=== PATIENT | male | born 1980 ===

== ENCOUNTER 2017-07-15 10:40 | Emergency (ER) | payer OTHER ==
[2017-07-15 10:59] VITALS: BP 116/71; PULSE 63; RESP 18; TEMP 98.4; O2SAT 98
[2017-07-15 11:22] LABS: BASO # 0.02 K/mm3 (0.0-2.0); BASO % 0.3 % (0.0-3.0); EOS # 0.1 (0.0-0.7); EOS % 1.5 % (1.5-5.0); GRAN # 2.98 (1.4-6.5); GRAN % 50.3 % (50.0-68.0); HEMOGLOBIN 14.3 g/dL (14.0-18.0); LYMPH # 2.2 (1.2-3.4); LYMPH % 36.4 % (22.0-35.0); MEAN CORPUSCULAR HEMOGLOBIN 26.8 pg (25.0-35.0); MEAN CORPUSCULAR HGB CONC 32.7 g/dl (31.0-37.0); MEAN PLATELET VOLUME 10.5 fl (7.0-11.0); MONO # 0.7 (0.1-0.6); MONO % 11.5 % (1.0-6.0); RBC 5.33 10^6/uL (3.5-6.1); RED CELL DISTRIBUTION WIDTH 13.5 % (11.5-14.5); WHITE BLOOD COUNT 5.9 10^3/ul (4.5-11.0)
[2017-07-15 11:30] LABS: ALB/GLOB RATIO 1.4 (1.1-1.8); ALBUMIN 4.3 g/dL (3.0-4.8); ALT/SGPT 39 U/L (7-56); AST/SGOT 28 U/L (17-59); BLOOD UREA NITROGEN 10 mg/dL (7-21); CALCIUM 9.3 mg/dL (8.4-10.5); GFR AFRICAN-AMERICAN > 60; GFR NON-AFRICAN AMERICAN > 60; MAGNESIUM 1.9 mg/dL (1.7-2.2)
[2017-07-15 11:41] LABS: TROPONIN I < 0.01 ng/mL
[2017-07-15 12:11] LABS: URINE BILIRUBIN NEGATIVE (NEGATIVE); URINE BLOOD NEGATIVE (NEGATIVE); URINE GLUCOSE (UA) NEGATIVE (NEGATIVE); URINE LEUKOCYTE ESTERASE NEGATIVE Leu/uL (NEGATIVE); URINE NITRATE NEGATIVE (NEGATIVE); URINE PROTEIN NEGATIVE mg/dL (<30 mg/dL); URINE UROBILINOGEN 0.2 E.U./dL (<1 E.U./dL)
[2017-07-15 12:13] LABS: URINE APPEARANCE CLEAR (CLEAR)
[2017-07-15 12:14] LABS: URINE COLOR YELLOW (YELLOW)
--- NOTE | 2017-07-15 12:29 | RAD ---
HISTORY: r/o infiltrate COMPARISON: No prior. TECHNIQUE: Chest PA and lateral FINDINGS: LUNGS: No active pulmonary disease. PLEURA: No significant pleural effusion identified. No pneumothorax apparent. CARDIOVASCULAR: Normal. OSSEOUS STRUCTURES: No significant abnormalities. VISUALIZED UPPER ABDOMEN: Normal. OTHER FINDINGS: None. IMPRESSION: No active disease.
--- NOTE | 2017-07-15 13:20 | ED PDOC ---
Arrival/HPI - General Chief Complaint: Cough, Cold, Congestion Time Seen by Provider: 07/15/17 10:48 Historian: Patient - History of Present Illness Narrative History of Present Illness (Text): 07/15/17 13:20 A 37 year old male presents to the emergency department complaining of left sided rib pain for the past couple days. Patient also reports non productive cough for 3-4 days. Reports he didn't get flu shot this year. Denies any sick contacts. Patient denies any fever, shortness of breath, nausea, vomiting or any other complaints at this time. Symptom Onset: Sudden Symptom Course: Unchanged Activities at Onset: Rest Context: Home Past Medical History - Provider Review Nursing Documentation Reviewed: Yes - Cardiac Hx Cardiac Disorders: No - Pulmonary Hx Respiratory Disorders: Yes Other/Comment: lung surgery - Genitourinary/Gynecological Hx Genitourinary Disorders: Yes Hx Urinary Tract Infection: Yes - Psychiatric Hx Substance Use: No - Surgical History Other/Comment: lung and urinary surgery - Anesthesia Hx Anesthesia: Yes Hx Anesthesia Reactions: No Hx Malignant Hyperthermia: No Family/Social History - Physician Review Nursing Documentation Reviewed: Yes Family/Social History: No Known Family HX Smoking Status: Never Smoked Hx Alcohol Use: No Hx Substance Use: No Allergies/Home Meds Allergies/Adverse Reactions: Allergies ampicillin Allergy (Verified 07/15/17 10:45) RASH Review of Systems - Review of Systems Constitutional: absent: Fevers Respiratory: Cough. absent: SOB Gastrointestinal: absent: Nausea, Vomiting Musculoskeletal: Other (left sided rib pain) Physical Exam Vital Signs Reviewed: Yes Vital Signs Temp Pulse Resp BP Pulse Ox 07/15/17 10:45 98.4 F 63 18 116/71 98 Temperature: Afebrile Blood Pressure: Normal Pulse: Regular Respiratory Rate: Normal Appearance: Positive for: Well-Appearing, Non-Toxic, Comfortable Pain Distress: None Mental Status: Positive for: Alert and Oriented X 3 - Systems Exam Head: Present: Atraumatic, Normocephalic Pupils: Present: PERRL Extroacular Muscles: Present: EOMI Conjunctiva: Present: Normal Mouth: Present: Moist Mucous Membranes Neck: Present: Normal Range of Motion Respiratory/Chest: Present: Clear to Auscultation, Good Air Exchange. No: Respiratory Distress, Accessory Muscle Use Cardiovascular: Present: Regular Rate and Rhythm, Normal S1, S2. No: Murmurs Abdomen: Present: Normal Bowel Sounds. No: Tenderness, Distention, Peritoneal Signs Back: Present: Normal Inspection Upper Extremity: Present: Normal Inspection, Other (healed scar left axilla, secondary to chest tube placed when 8 years old for PNA, according to patient). No: Cyanosis, Edema Lower Extremity: Present: Normal Inspection. No: Edema Neurological: Present: GCS=15, CN II-XII Intact, Speech Normal Skin: Present: Warm, Dry, Normal Color. No: Rashes Psychiatric: Present: Alert, Oriented x 3, Normal Insight, Normal Concentration Medical Decision Making ED Course and Treatment: 07/15/17 13:18 Impression: A 37 year old male with left sided rib pain and cough. Plan: -- EKG -- chest xray -- labs -- Reassess and disposition Progress Notes: EKG: Ordered, reviewed, and independently interpreted the EKG. Rate : 62 BPM Rhythm : NSR Interpretation : Normal intervals, normal axis 07/15/17 12:31 Chest xray: Creator : Quincy Carrasco MD IMPRESSION: No active disease. On re-evaluation, patient feels better and is in no acute distress. I have discussed the results and plan with the patient, who expresses understanding. Patient in agreement with plan to be discharged home. Patient is stable for discharge. Patient was instructed to follow up with physician or return if symptoms worsen or new concerning symptoms arise. - Lab Interpretations Lab Results: 07/15/17 11:05 07/15/17 11:05 Lab Results 07/15/17 12:04: Urine Color Yellow, Urine Appearance Clear, Urine pH 7.0, Ur Specific Roca 1.015, Urine Protein Negative, Urine Glucose (UA) Negative, Urine Ketones Negative, Urine Blood Negative, Urine Nitrate Negative, Urine Bilirubin Negative, Urine Urobilinogen 0.2, Ur Leukocyte Esterase Negative 07/15/17 11:05: Influenza Typ A,B (EIA) Negative for flu a/b 07/15/17 11:05: Sodium 139, Potassium 4.5, Chloride 104, Carbon Dioxide 26, Anion Gap 14, BUN 10, Creatinine 0.8, Est GFR ( Amer) > 60, Est GFR (Non- Af Amer) > 60, Random Glucose 97, Calcium 9.3, Magnesium 1.9, Total Bilirubin 0.5, AST 28, ALT 39, Alkaline Phosphatase 51, Lactate Dehydrogenase 331 L, Total Creatine Kinase 170, Troponin I < 0.01, Total Protein 7.2, Albumin 4.3, Globulin 3.0, Albumin/Globulin Ratio 1.4 07/15/17 11:05: WBC 5.9, RBC 5.33, Hgb 14.3, Hct 43.7, MCV 82.0, MCH 26.8, MCHC 32.7, RDW 13.5, Plt Count 192, MPV 10.5, Gran % 50.3, Lymph % (Auto) 36.4 H, Loup % (Auto) 11.5 H, Eos % (Auto) 1.5, Baso % (Auto) 0.3, Gran # 2.98, Lymph # 2.2, Loup # 0.7 H, Eos # 0.1, Baso # 0.02 I have reviewed the lab results: Yes - RAD Interpretation Radiology Orders: 07/15/17 10:56 CHEST TWO VIEWS (PA/LAT) [RAD] Stat - EKG Interpretation Interpreted by ED Physician: Yes Type: 12 lead EKG - Medication Orders Current Medication Orders: Discontinued Medications Ibuprofen (Motrin Tab) 600 mg PO STAT STA Stop: 07/15/17 13:02 Last Admin: 07/15/17 13:05 Dose: 600 mg MAR Pain/Vitals Document 07/15/17 13:05 SE (Rec: 07/15/17 13:05 [id number]) Pain Reassessment Is This A Pain ReAssessment? No Sleep Is patient sleeping during reassessment? No Presence of Pain Presence of Pain Yes - Scribe Statement The provider has reviewed the documentation as recorded by the Hyun Tariq Provider Scribe Attestation: All medical record entries made by the Scribshanda were at my direction and personally dictated by me. I have reviewed the chart and agree that the record accurately reflects my personal performance of the history, physical exam, medical decision making, and the department course for this patient. I have also personally directed, reviewed, and agree with the discharge instructions and disposition. Disposition/Present on Arrival - Present on Arrival Any Indicators Present on Arrival: No History of DVT/PE: No History of Uncontrolled Diabetes: No Urinary Catheter: No History of Decub. Ulcer: No History Surgical Site Infection Following: None - Disposition Have Diagnosis and Disposition been Completed?: Yes Diagnosis: Musculoskeletal pain Disposition: HOME/ ROUTINE Disposition Time: 12:20 Condition: GOOD Discharge Instructions (ExitCare): Noncardiac Chest Pain (ED) Print Language: ALBANIAN Additional Instructions: Thank you for letting us take care of you today. Your provider was [Provider Name Here]. You were treated for [Diagnosis Here]. The emergency medical care you received today was directed at your acute symptoms. If you were prescribed any medication, please fill it and take as directed. It may take several days for your symptoms to resolve. Return to the Emergency Department if your symptoms worsen, do not improve, or if you have any other problems. Please contact your doctor or call one of the physicians/clinics you have been referred to that are listed on the Patient Visit Information form that is included in your discharge packet. Bring any paperwork you were given at discharge with you along with any medications you are taking to your follow up visit. Our treatment cannot replace ongoing medical care by a primary care provider (PCP) outside of the emergency department. Thank you for allowing the [facility] team to be part of your care today. Follow up with the clinic in 2-3 days for outpatient care and management. Roxie por dejarnos atenderlo hoy. Kumar proveedor fue [Nombre del proveedor aqu] . Usted fue tratado por [Diagnosis Here]. La atencin mdica de emergencia que recibi hoy estaba dirigida a sherine sntomas agudos. Si le prescribieron algn medicamento, llnelo y tome segn las indicaciones. Sherine sntomas pueden tardar varios sauer en resolverse. Regrese al Departamento de Emergencia si sherine s ntomas empeoran, no mejoran o si tiene algn otro problema. Comunquese con kumar mdico o llame a jitendra de los mdicos / clnicas a los que loredo sido referido que figura en el formulario de Informacin de visita del paciente que se incluye en kumar paquete de jb. Traiga todos los documentos que recibi al momento del jb junto con los medicamentos que est tomando en kumar visita de seguimiento. Nuestro tratamiento no puede reemplazar la atencin mdica en curso por parte de un proveedor de atencin primaria (PCP) fuera del departamento de emergencias. Roxie por permitir que el equipo de [facility] sea parte de kumar cuidado hoy. Ovi un seguimiento con la clnica en 2-3 sauer para atencin y manejo ambulatorio. Prescriptions: Ibuprofen [Motrin] 600 mg PO Q6 PRN #20 tab PRN Reason: Pain, Moderate (4-7) Referrals: [facility] [Outside] - Follow up with primary [facility] [Outside] - Follow up with primary Forms: [employer] (Yi)
--- NOTE | 2017-07-16 10:37 | CARD ---
APPROVED REPORT EKG Measurement Heart [id number] <Conclusion> Normal sinus rhythm with sinus arrhythmia Incomplete right bundle branch block Peaked precordial T waves
== END 2017-07-15 13:08 | disposition home or self-care (01) ==
LOC: ED 10:40
DX: M79.1 Myalgia (principal)